=== PATIENT | female | born 1980 | race Caucasian/White ===

== ENCOUNTER → 2019-02-18 13:55 | Outpatient (CLI) | payer OTHER, SELFPAY ==
--- NOTE | 2019-02-18 | DI.CT.S_ITS ---
PROCEDURE: CT ABDOMEN PELVIS W CON INDICATIONS: Persisting abdominal pain TECHNIQUE: After the administration of oral and intravenous contrast, 5 mm thick sections acquired from the diaphragms to the symphysis. 5 mm thick coronal and sagittal reformats were performed. For radiation dose reduction, the following was used: automated exposure control, adjustment of mA and/or kV according to patient size. COMPARISON: None. FINDINGS: Image quality: Excellent. ABDOMEN: Lung bases: Lung bases are clear. Heart size is normal. Solid organs: Liver is enlarged. Incidental note is made of focal fatty infiltration adjacent to the falciform ligament, which is not regarded to be pathologic. Gallbladder demonstrates no significant CT abnormality. Biliary system is non-dilated. Pancreas enhances normally. Spleen is normal in size and enhancement. No adrenal nodules. Kidneys are normal in size and enhancement, without hydronephrosis. Peritoneum and bowel: Stomach, small bowel, and colon loops are normal in caliber and wall thickness. No free fluid or air. Nodes and vessels: No retroperitoneal or mesenteric adenopathy. Aorta and inferior vena cava are normal in caliber. Miscellaneous: No ventral hernias. No significant abnormality can be seen within the region the prior umbilical hernia repair. PELVIS: Genitourinary: Bladder wall thickness is normal. The uterus is retroverted. Miscellaneous: No inguinal hernias or adenopathy. Bones: No suspicious bony lesions. No vertebral body compression fractures. Several Schmorl's nodes can be seen, without grant acute features. IMPRESSION: No imaging explanation is found for this patient's presenting symptoms. Incidental note is made of: Hepatomegaly Unremarkable umbilical hernia repair site. Several Schmorl's nodes Dictated by: Jay Jiménez M.D. on 02/18/2019 at 14:59 Approved by: Jay Jiménez M.D. on 02/18/2019 at 15:03
== END ==
PROVIDERS: PCP Nurse Practitioner Acute Care; Visit Provider Nurse Practitioner Acute Care
DX: R10.9 Unspecified abdominal pain (principal); R16.0 Hepatomegaly, not elsewhere classified
CPT/HCPCS: 74177

== ENCOUNTER → 2019-02-28 09:43 | Outpatient (CLI) | payer OTHER, SELFPAY ==
--- NOTE | 2019-02-28 | DI.MG.S_ITS ---
BILATERAL DIGITAL DIAGNOSTIC MAMMOGRAM 3D/2D: 02/28/2019 CLINICAL: Baseline exam. Left breast pain and nodule. No prior exams were available for comparison. The tissue of both breasts is extremely dense, which lowers the sensitivity of mammography. No significant masses, calcifications, or other findings are seen in either breast. Specifically, no finding to correspond to the patient's palpable abnormality in the subareolar region. No abnormalities in the axillary tail area of pain. IMPRESSION: INCOMPLETE: NEEDS ADDITIONAL IMAGING EVALUATION There are no abnormalities seen in the left breast to correspond with the palpable nodularities in the sub-areolar depth, however, ultrasound is recommended. This was performed immediately following this exam. There is no abnormality seen in the left breast to correspond with the pain in the axillary tail. This exam was interpreted at Station ID: [id number]. NOTE: For mammograms, a report in lay terms will be sent to the patient. Approximately 15% of breast malignancies will not be visualized mammographically. In the management of a palpable breast mass, a negative mammogram must not discourage biopsy of a clinically suspicious lesion. Electronically Signed By: Samina patterson/:02/28/2019 10:55:04 ACR BI-RADS Category 0: Incomplete [id number]
--- NOTE | 2019-02-28 | DI.US.S_ITS ---
LIMITED ULTRASOUND OF LEFT BREAST AND AXILLA: 02/28/2019 CLINICAL: Palpable left breast lump by physician. Focal left breast pain. Comparison is made to exam dated: 02/28/2019 [facility]. Real-time ultrasound of the left breast retroareolar and axilla regions was performed. Garcia scale images of the real-time examination were reviewed. No significant abnormalities were seen sonographically in the left breast retroareolar area or the left axilla. Specifically, no finding to correspond to the patient's palpable abnormality or area of pain. IMPRESSION: NEGATIVE There is no sonographic evidence of malignancy. A 3 year screening mammogram is recommended. Clinical follow up recommended for palpable abnormality and area of left breast pain. Findings and recommendations were conveyed to the patient at time of exam. This exam was interpreted at Station ID: [id number]. Electronically Signed By: Samina patterson/:02/28/2019 11:36:36 letter sent: Normal Exam Ultrasound BI-RADS: 1 Negative
== END ==
PROVIDERS: PCP Nurse Practitioner Acute Care; Visit Provider Nurse Practitioner Acute Care
DX: R92.8 Other abnormal and inconclusive findings on diagnostic imaging of breast (principal); N64.4 Mastodynia; N63.42 Unspecified lump in left breast, subareolar; N63.32 Unspecified lump in axillary tail of the left breast
CPT/HCPCS: 76642; 77066; G0279

== ENCOUNTER → 2019-05-23 08:54 | Outpatient (CLI) | payer OTHER, SELFPAY ==
--- NOTE | 2019-05-23 | DI.MRI.S_ITS ---
PROCEDURE: MR ABDOMEN WO CON INDICATIONS: Unspecified abdominal pain TECHNIQUE: Axial 2-D FLASH in- and [id number], axial breath-hold T2 FSE, axial STIR FSE. Optional contrast may be given, followed by axial 2-D FLASH with fat saturation acquired over the lesion of concern. COMPARISON: [facility], CT, CT ABDOMEN PELVIS W CON, 02/18/2019, 14:57. FINDINGS: Image quality: Excellent. Region of interest: Abdominal wall. Mild scarring in the ventral abdominal wall periumbilical region. No fluid collection. No recurrent hernia is seen. A few foci of susceptibility artifact in the subcutaneous fat. A few small varices. Hepatomegaly again seen. Liver surface is smooth. Gallbladder is unremarkable. No splenomegaly. Pancreatic contour is unremarkable. No adrenal nodule. No hydronephrosis. No free intra-abdominal fluid. No dilated loops of bowel. No AAA. IVC is prominent. Bones: Nearby osseous structures demonstrate normal overall marrow signal. Moderate degenerative change with Schmorl's nodes. IMPRESSION: 1. No recurrent ventral abdominal wall hernia seen. No fluid collection. 2. Hepatomegaly is again seen. Dictated by: Obed No M.D. on 05/23/2019 at 11:40 Approved by: Obed No M.D. on 05/23/2019 at 11:58
== END ==
PROVIDERS: PCP Nurse Practitioner Acute Care; Referring Provider Nurse Practitioner Acute Care; Visit Provider Nurse Practitioner Acute Care
DX: R10.9 Unspecified abdominal pain (principal); R16.0 Hepatomegaly, not elsewhere classified
CPT/HCPCS: 74181

== ENCOUNTER 2023-05-18 10:48 | Emergency (ER) | payer OTHER, SELFPAY ==
[2023-05-18 11:32] VITALS: BP 125/60; PULSE 83; RESP 18; TEMP 36.7; O2SAT 100; BMI 23.6
--- NOTE | 2023-05-18 11:41 | DI.US.S_ITS ---
PROCEDURE: US OB <= 14 WEEKS FETUS INDICATIONS: NO FHT IN OFFICE TECHNIQUE: Real-time scanning was performed of the fetus and maternal pelvic organs, with image documentation. Endovaginal scanning was also performed to better visualize the fetus and maternal ovaries. COMPARISON: None. FINDINGS: There is an intrauterine pole measuring 21 mm, corresponding to an 8 week 5 day gestation, with no significant cardiac activity. Maternal organs: Ovaries corpus luteal cyst is present within the right adnexa. Left ovary is grossly unremarkable. IMPRESSION: demise. We strive to produce accurate, complete, and clear reports of imaging services. To assist us in improving patient care, this report was composed using standard report templates and voice recognition software. Therefore, it may contain abnormal punctuation, insertions and/or omissions. Occasional wrong-word or sound-alike substitutions may occur. Though we review the report and make efforts to correct it, we do recommend that the report be read carefully in proper context to recognize any text inaccuracies. Dictated by: Kenan Hatch M.D. on 05/18/2023 at 12:42 Approved by: Kenan Hatch M.D. on 05/18/2023 at 12:43
[2023-05-18 16:51] VITALS: BP 114/59; PULSE 66; RESP 16; O2SAT 100
[2023-05-18 17:38] LABS: Add Manual Diff / Slide Review NO; Basophils Absolute Auto 100 /uL (0-100); Eosinophils Absolute Auto 100 /uL (0-450); Hematocrit 38.1 % (36-46); Hemoglobin 13.2 g/dL (12.0-16.0); Lymphocytes Absolute Auto 2200 /uL (1100-4500); Lymphocytes Percent Auto 26.7 % (25-40); Mean Corpuscular HGB Conc 34.6 % (30-36); Mean Corpuscular Hemoglobin 32.3 PG (26-34); Mean Corpuscular Volume 93.3 fL (80-100); Monocytes Absolute Auto 600 /uL (0-900); Monocytes Percent Auto 6.9 % (3-14); Neutrophils Absolute Auto 5300 /uL (1500-7000); Neutrophils Percent Auto 64.4 % (50-75); Platelet Count 258 X10^3/uL (150-400); Red Blood Cell Count 4.08 X10^6/uL (4.0-5.2); Red Cell Distribution Width 12.9 % (11.6-14.8); White Blood Cell Count 8.2 X10^3/uL (4.5-11.0)
[2023-05-18 17:51] LABS: Alanine Aminotransferase 47 IU/L (<35); Albumin 4.3 g/dL (3.5-5.0); Albumin Globulin Ratio 1.4 (1.0-2.8); Alkaline Phosphatase 56 U/L (38-126); Aspartate Aminotransferase 28 IU/L (14-36); Bilirubin Total 0.8 mg/dL (0.2-1.3); Blood Urea Nitrogen 5 mg/dL (7-17); Calcium 8.8 mg/dL (8.4-10.2); Carbon Dioxide 24 mmol/L (22-32); Chloride 101 mmol/L (98-107); Estimated Glomerular Filt Rate > 60 mL/min (>60); Glucose 90 mg/dL (70-100); HEMOLYSIS < 15 (0-50); Potassium 3.4 mmol/L (3.4-5.1); Sodium 134 mmol/L (137-145); Total Protein 7.3 g/dL (6.3-8.2)
[2023-05-18 18:07] LABS: HCG Quantitative /Beta subunit 7231.4 mIU/mL
--- NOTE | 2023-05-18 18:30 | ED_ITS ---
HPI - <Taj Wilson PA-C - Last Filed: 05/18/23 18:37> General Chief complaint: Vaginal Bleeding Stated complaint: 10 weeks spotting no heartbeat Time Seen by Provider: 05/18/23 17:15 Source: patient Mode of arrival: Ambulatory Limitations: no limitations History of Present Illness HPI Narrative: 42-year-old female presents to the ED with 1 day of vaginal spotting during . Patient states that she is 10 weeks per her LMP, had her 1st [employer] appointment this morning when they could not detect a heartbeat. Patient states that she started seeing some mild spotting starting last night patient states that it is. Patient states that it is not a significant amount, but rather just a little bit of dark-red when she wipes. No significant pelvic cramping. No abdominal pain. Related Data Home Medications Medication Instructions Recorded Confirmed ascorbic acid (vitamin C) 500 mg 500 mg ##0 05/05/16 tablet cholecalciferol (vitamin D3) 50 2,000 PO BID ##0 05/05/16 mcg (2,000 unit) capsule (Vitamin D3) multivitamin (Multiple Vitamins 1 PO QDAY ##0 05/05/16 tablet) [TURMERIC] ##0 06/16/16 magnesium 200 mg tablet 200 mg PO QDAY ##0 06/16/16 Allergies Allergy/AdvReac Type Severity Reaction Status Date / Time amoxicillin [AMOXICILLIN] Allergy Unknown Verified 05/18/23 11:32 Penicillins [PENICILLINS] Allergy Unknown Verified 05/18/23 11:32 Review of Systems <Taj Wilson PA-C - Last Filed: 05/18/23 18:37> Constitutional Constitutional: Denies chills, Denies fatigue, Denies fever(s), Denies frequent falls, Denies lethargy and Denies weakness Eyes Eyes: Denies change in vision, Denies eye discharge, Denies irritation and Denies loss of vision ENT Ears, Nose, Mouth, and Throat: Denies change in voice, Denies dizziness, Denies neck pain, Denies sore throat and Denies throat swelling Cardiovascular Cardiovascular: Denies chest pain, Denies irregular heart rhythm, Denies lightheadedness, Denies palpitations, Denies dyspnea, Denies dyspnea on exertion and Denies orthopnea Respiratory Respiratory: Denies cough, Denies dyspnea, Denies dyspnea on exertion and Denies wheezing Gastrointestinal Gastrointestinal: Denies abdominal pain, Denies change in bowel habits, Denies diarrhea, Denies nausea and Denies vomiting Genitourinary Genitourinary: Reports abnormal vaginal bleeding Musculoskeletal Musculoskeletal: Denies neck pain and Denies numbness Integumentary/Breasts Skin/Breast: Denies pruritus, Denies erythema, Denies rash and Denies wounds Neurologic Neurologic: Denies behavioral changes, Denies confusion, Denies dizziness, Denies frequent falls, Denies loss of vision, Denies numbness and Denies weakness Psychiatric Psychiatric: Denies anxiety, Denies behavioral changes, Denies confusion, Denies depression, Denies homicidal ideation and Denies suicidal ideation Endocrine Endocrine: Denies fatigue, Denies flushing and Denies palpitations Hematologic/Lymphatic Hematologic/Lymphatic: Denies easy bruising Allergic/Immunologic Allergic/Immunologic: Denies urticaria, Denies throat swelling and Denies wheezing Exam <Taj Wilson PA-C - Last Filed: 05/18/23 18:37> Narrative Exam Narrative: Const General:?cooperative, healthy appearing and comfortable [facility] Head:?normal to inspection Ears:?hearing grossly normal bilaterally Nose:?external nose normal Face and sinus:?normal facial exam and sinuses nontender Mouth:?oral mucosae normal Throat:?posterior oropharynx normal Eyes General:?appearance normal, both eyes and all related structures Neck Neck:?normal visual inspection and no lymphadenopathy noted Resp Effort & Inspection:?normal respiratory effort Auscultation:?clear to auscultation bilaterally Cardio Rate:?regular rate Rhythm:?regular rhythm Neuro General:?patient alert, patient awake and patient oriented x3 Initial Vital Signs Initial Vital Signs: Vital Signs Temperature 98.1 F 05/18/23 11:32 Pulse Rate 83 05/18/23 11:32 Respiratory Rate 18 05/18/23 11:32 Blood Pressure 125/60 05/18/23 11:32 Pulse Oximetry 100 05/18/23 11:32 Oxygen Delivery Method Room Air 05/18/23 11:32 <Araceli Pichardo DO - Last Filed: 05/18/23 19:14> Initial Vital Signs Initial Vital Signs: Vital Signs Temperature 98.1 F 05/18/23 11:32 Pulse Rate 83 05/18/23 11:32 Respiratory Rate 18 05/18/23 11:32 Blood Pressure 125/60 05/18/23 11:32 Pulse Oximetry 100 05/18/23 11:32 Oxygen Delivery Method Room Air 05/18/23 11:32 Course <Taj Wilson PA-C - Last Filed: 05/18/23 18:37> Orders Ordered: ED Orders 05/18/23 11:41 US OB <= 14 weeks fetus Stat 05/18/23 17:25 Complete Blood Count AUTO DIFF Stat Comprehensive Metabolic Panel Stat HCG Quantitative /Beta subunit Stat Type and Screen Stat Vital Signs Vital signs: Vital Signs - 8 hr 05/18/23 11:32 05/18/23 16:51 05/18/23 18:35 Temperature 98.1 F Pulse Rate 83 66 65 Respiratory Rate 18 16 16 Blood Pressure 125/60 114/59 L 104/56 L Pulse Oximetry 100 100 100 Oxygen Delivery Method Room Air Room Air Room Air <Araceli Pichardo DO - Last Filed: 05/18/23 19:14> Orders Ordered: ED Orders 05/18/23 11:41 US OB <= 14 weeks fetus Stat 05/18/23 17:25 Complete Blood Count AUTO DIFF Stat Comprehensive Metabolic Panel Stat HCG Quantitative /Beta subunit Stat Type and Screen Stat Vital Signs Vital signs: Vital Signs - 8 hr 05/18/23 11:32 05/18/23 16:51 05/18/23 18:35 Temperature 98.1 F Pulse Rate 83 66 65 Respiratory Rate 18 16 16 Blood Pressure 125/60 114/59 L 104/56 L Pulse Oximetry 100 100 100 Oxygen Delivery Method Room Air Room Air Room Air MDM - OB/Uterine Contractions <Taj Wilson PA-C - Last Filed: 05/18/23 18:37> Lab Data 05/18/23 17:25 05/18/23 17:25 Labs: Lab Results 05/18/23 Range/Units 17:25 WBC 8.2 (4.5-11.0) X10^3/uL RBC 4.08 (4.0-5.2) X10^6/uL Hgb 13.2 (12.0-16.0) g/dL Hct 38.1 (36-46) % MCV 93.3 (80-100) fL MCH 32.3 (26-34) PG MCHC 34.6 (30-36) % RDW 12.9 (11.6-14.8) % Plt Count 258 (150-400) X10^3/uL Neut % (Auto) 64.4 (50-75) % Lymph % (Auto) 26.7 (25-40) % Elliott % (Auto) 6.9 (3-14) % Eos % (Auto) 1.0 L (2-4) % Baso % (Auto) 1.0 (0-2) % Neut # (Auto) 5300 (3190-0280) /uL Lymph # (Auto) 2200 (2488-4252) /uL Elliott # (Auto) 600 (0-900) /uL Eos # (Auto) 100 (0-450) /uL Baso # (Auto) 100 (0-100) /uL Sodium 134 L (137-145) mmol/L Potassium 3.4 (3.4-5.1) mmol/L Chloride 101 (98-107) mmol/L Carbon Dioxide 24 (22-32) mmol/L BUN 5 L (7-17) mg/dL Creatinine 0.50 L (0.52-1.04) mg/dL Estimated GFR > 60 (>60) mL/min BUN/Creatinine Ratio 10.0 (6-22) Glucose 90 (70-100) mg/dL Calcium 8.8 (8.4-10.2) mg/dL Total Bilirubin 0.8 (0.2-1.3) mg/dL AST 28 (14-36) IU/L ALT 47 H (<35) IU/L Alkaline Phosphatase 56 (38-126) U/L Total Protein 7.3 (6.3-8.2) g/dL Albumin 4.3 (3.5-5.0) g/dL Globulin 3.0 (1.7-4.1) g/dL Albumin/Globulin Ratio 1.4 (1.0-2.8) HCG, Quant 7231.4 mIU/mL Blood Type O Positive Antibody Screen Negative Urine Dip Bedside Urine Glucose Negative Bedside Urine Bilirubin - Negative Bedside Urine Ketone - Negative Urine Specific [place] 1.010 Bedside Urine Occult Blood - Negative Bedside Urine pH 7.5 Bedside Urine Protein - Negative Bedside Urine Urobilinogen - Negative Bedside Urine Nitrite - Negative Bedside Urine Leukocytes - Negative Esterase MDM Narrative Medical decision making narrative: 42-year-old female presents to the ED with 1 day of vaginal spotting during . Concern for intrauterine versus ectopic versus threatened miscarriage versus other. Obtained labs, hCG quantitative, ultrasound. HCG quant is 7231. Patient blood type is O positive, no indication for RhoGAM. Ultrasound shows a intrauterine pole measuring 21 mm, corresponding to an 8 week 5 day gestation with no significant cardiac activity. Discussed findings with patient. Discussed possibility of miscarriage. Recommend follow-up with [facility] for serial exams and evaluation. ED return precautions discussed with patient. Patient verbalized understanding. Medical records reviewed: Yes <Araceli Pichardo DO - Last Filed: 05/18/23 19:14> Lab Data Labs: Lab Results 05/18/23 Range/Units 17:25 WBC 8.2 (4.5-11.0) X10^3/uL RBC 4.08 (4.0-5.2) X10^6/uL Hgb 13.2 (12.0-16.0) g/dL Hct 38.1 (36-46) % MCV 93.3 (80-100) fL MCH 32.3 (26-34) PG MCHC 34.6 (30-36) % RDW 12.9 (11.6-14.8) % Plt Count 258 (150-400) X10^3/uL Neut % (Auto) 64.4 (50-75) % Lymph % (Auto) 26.7 (25-40) % Elliott % (Auto) 6.9 (3-14) % Eos % (Auto) 1.0 L (2-4) % Baso % (Auto) 1.0 (0-2) % Neut # (Auto) 5300 (8986-1157) /uL Lymph # (Auto) 2200 (6560-4835) /uL Elliott # (Auto) 600 (0-900) /uL Eos # (Auto) 100 (0-450) /uL Baso # (Auto) 100 (0-100) /uL Sodium 134 L (137-145) mmol/L Potassium 3.4 (3.4-5.1) mmol/L Chloride 101 (98-107) mmol/L Carbon Dioxide 24 (22-32) mmol/L BUN 5 L (7-17) mg/dL Creatinine 0.50 L (0.52-1.04) mg/dL Estimated GFR > 60 (>60) mL/min BUN/Creatinine Ratio 10.0 (6-22) Glucose 90 (70-100) mg/dL Calcium 8.8 (8.4-10.2) mg/dL Total Bilirubin 0.8 (0.2-1.3) mg/dL AST 28 (14-36) IU/L ALT 47 H (<35) IU/L Alkaline Phosphatase 56 (38-126) U/L Total Protein 7.3 (6.3-8.2) g/dL Albumin 4.3 (3.5-5.0) g/dL Globulin 3.0 (1.7-4.1) g/dL Albumin/Globulin Ratio 1.4 (1.0-2.8) HCG, Quant 7231.4 mIU/mL Blood Type O Positive Antibody Screen Negative Urine Dip Bedside Urine Glucose Negative Bedside Urine Bilirubin - Negative Bedside Urine Ketone - Negative Urine Specific [place] 1.010 Bedside Urine Occult Blood - Negative Bedside Urine pH 7.5 Bedside Urine Protein - Negative Bedside Urine Urobilinogen - Negative Bedside Urine Nitrite - Negative Bedside Urine Leukocytes - Negative Esterase Discharge Plan Departure Patient Disposition: Home Clinical Impression: Vaginal bleeding during Instructions: DI for Vaginal Bleeding During Activity Restrictions/Additional Instructions: You were evaluated in the ED today for spotting during . Your labs were normal. Your hCG which is your hormone is 7231. Your ultrasound shows a that is dated at 8 weeks and 5 days, has a pole, no significant cardiac activity. It is possible that you have a normally progressing , but there is also a chance that you might have a miscarriage. The next steps to managing your is repeat blood tests and ultrasounds to monitor the . You may follow-up with [facility] at [phone] to establish care. Return to the ED if you have worsening symptoms. Prescriptions: No Action multivitamin [Multiple Vitamins] 1 EACH tablet 1 PO QDAY Qty: 0 ascorbic acid (vitamin C) 500 MG tablet 500 mg Qty: 0 cholecalciferol (vitamin D3) [Vitamin D3] 2,000 UNIT capsule 2,000 PO BID Qty: 0 magnesium 200 MG tablet 200 mg PO QDAY Qty: 0 [TURMERIC] Qty: 0 Referrals: Loyda Jackson ARNP [Primary Care Provider] - Stand Alone Forms: Patient Portal/API ED Sign-out <Araceli Pichardo DO - Last Filed: 05/18/23 19:14> Cosign ED Attending Cosignature Attestation: I was immediately available in the department for consultation.
[2023-05-18 18:35] VITALS: BP 104/56; PULSE 65; RESP 16; O2SAT 100
== END 2023-05-18 18:35 | disposition home or self-care (01) ==
PROVIDERS: Emergency Medicine; Emergency Provider Student in an Organized Health Care Education/Training Program; PCP Nurse Practitioner Acute Care
DX: O20.9 Hemorrhage in early pregnancy, unspecified (principal); Z3A.08 8 weeks gestation of pregnancy
CPT/HCPCS: 36415; 76801; 76817; 80053; 81003; 84702; 85025; 86850; 86900; 86901; 99282; 99283

== ENCOUNTER 2023-12-17 01:09 | Emergency (ER) | payer OTHER, SELFPAY ==
[2023-12-17 01:20] VITALS: BP 122/62; PULSE 78; RESP 16; TEMP 37; O2SAT 98; BMI 24.4
--- NOTE | 2023-12-17 02:24 | ED_ITS ---
HPI - General Chief complaint: Urogenital-Female Stated complaint: 10 weeks urinary retention Time Seen by Provider: 12/17/23 01:47 Source: patient Mode of arrival: Ambulatory Limitations: no limitations History of Present Illness HPI Narrative: 43-year-old female with 1 prior spontaneous miscarriage presents with complaint of urinary retention. Patient states she was about 10 weeks . Has not had any other issues. States she has had urinary tension with 2 of her prior pregnancies. One of them she had 2 episodes the other had 1 episode. 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 She states it seemed to have happened when she is held her urine for a long period of time and drink lot of water. She notes this time she would sat for several hours while watching a football game and held her urine and thinks that might have irritated her bladder. One time she had a straight cath, 1 time she had a Tian catheter for several days in the other time she had a straight cath. Patient states no other abdominal discomfort, she feels much better after having her bladder drained. Denies any vaginal spotting or bleeding. No fevers. She has had morning sickness. No other reported symptoms. Patient is quite clear she prefers to have a straight cath and not a Tian catheter. 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 Notes she is interested in following with Dr. Joseph. Related Data Home Medications Medication Instructions Recorded Confirmed ascorbic acid (vitamin C) 500 mg 500 mg ##0 05/05/16 tablet cholecalciferol (vitamin D3) 50 2,000 PO BID ##0 05/05/16 mcg (2,000 unit) capsule (Vitamin D3) multivitamin (Multiple Vitamins 1 PO QDAY ##0 05/05/16 tablet) [TURMERIC] ##0 06/16/16 magnesium 200 mg tablet 200 mg PO QDAY ##0 06/16/16 Allergies Allergy/AdvReac Type Severity Reaction Status Date / Time amoxicillin [AMOXICILLIN] Allergy Unknown Verified 05/18/23 11:32 Penicillins [PENICILLINS] Allergy Unknown Verified 05/18/23 11:32 Review of Systems Review of Systems ROS Unobtainable: All systems reviewed & are unremarkable except as noted in HPI and below Exam Narrative Exam Narrative: GENERAL: Alert and oriented x three, well-appearing female in mild distress. HEENT: Head normocephalic, atraumatic, EOMI, pupils reactive, face symmetric, moist mucous membranes NECK: Supple, full range of motion CARDIOVASCULAR: Regular rate and rhythm without murmurs, rubs or gallops. RESPIRATORY: Breath sounds equal bilaterally, no wheezes rales or rhonchi. ABDOMEN: Soft, nontender. Nondistended. Normoactive bowel sounds all 4 quadrants. No guarding or rebound, rigidity, no mass : No CVA tenderness EXTREMITIES: Normal range of motion, no clubbing or edema. Neurovascularly intact NEUROLOGICAL: Cranial nerves II through XII grossly intact. Moving all extremities SKIN: Warm, dry, no petechiae, no rashes or lesions. Initial Vital Signs Initial Vital Signs: Vital Signs Temperature 98.6 F 12/17/23 01:20 Pulse Rate 78 12/17/23 01:20 Respiratory Rate 16 12/17/23 01:20 Blood Pressure 122/62 12/17/23 01:20 Pulse Oximetry 98 12/17/23 01:20 Oxygen Delivery Method Room Air 12/17/23 01:20 Course Vital Signs Vital signs: Vital Signs - 8 hr 12/17/23 01:20 12/17/23 03:11 Temperature 98.6 F 98 F Pulse Rate 78 68 Respiratory Rate 16 16 Blood Pressure 122/62 114/66 Pulse Oximetry 98 99 Oxygen Delivery Method Room Air Room Air MDM - OB/Uterine Contractions Lab Data Labs: Point of Care Testing Test Results Positive Urine Dip Bedside Urine Glucose Negative Bedside Urine Bilirubin - Negative Bedside Urine Ketone - Negative Urine Specific [place] 1.005 Bedside Urine Occult Blood - Negative Bedside Urine pH 7.0 Bedside Urine Protein - Negative Bedside Urine Urobilinogen - Negative Bedside Urine Nitrite - Negative Bedside Urine Leukocytes - Negative Esterase [facility] Narrative Medical decision making narrative: Patient had about 600 mL out with straight catheterization. Postvoid was negative. Patient was clear she did not wish to have a Tian catheter. She states with prior episode she has had resolved with a straight cath. She has had similar episodes with 2 of her prior pregnancies. Urine is positive. Point of care urine is negative for acute infection. Discussed with patient return precautions. No spotting, bleeding or abdominal discomfort otherwise. Discharge Plan Departure Patient Disposition: Home Clinical Impression: Acute urinary retention, Instructions: DI for Urinary Retention in Women Activity Restrictions/Additional Instructions: Contact information for Dr. Joseph as included below. Please call to set up an appointment. If you have any recurrent retention of urine please return, you would require a Tian catheter and some additional workup. Please return for fevers, new or worsening abdominal back or flank pain, persistent vomiting, any new vaginal spotting or bleeding, difficulty with urination, black or bloody stools or other new or concerning changes. Prescriptions: No Action multivitamin [Multiple Vitamins] 1 EACH tablet 1 PO QDAY Qty: 0 ascorbic acid (vitamin C) 500 MG tablet 500 mg Qty: 0 cholecalciferol (vitamin D3) [Vitamin D3] 2,000 UNIT capsule 2,000 PO BID Qty: 0 magnesium 200 MG tablet 200 mg PO QDAY Qty: 0 [TURMERIC] Qty: 0 Referrals: Valerie Joseph DO [Physician] - Loyda Jackson ARNP [Primary Care Provider] - Stand Alone Forms: Patient Portal/API
[2023-12-17 03:11] VITALS: BP 114/66; PULSE 68; RESP 16; TEMP 36.6; O2SAT 99
== END 2023-12-17 03:12 | disposition home or self-care (01) ==
PROVIDERS: Emergency Provider Emergency Medicine; PCP Nurse Practitioner Acute Care
DX: R33.8 Other retention of urine (principal); Z3A.10 10 weeks gestation of pregnancy
CPT/HCPCS: 51798; 81003; 81025; 99283

== ENCOUNTER 2023-12-22 00:04 | Emergency (ER) | payer OTHER, SELFPAY ==
[2023-12-22 00:18] VITALS: BP 111/79; PULSE 81; RESP 17; TEMP 37; O2SAT 99; BMI 24.4
--- NOTE | 2023-12-22 00:28 | ED_ITS ---
HPI - General Adult General Chief complaint: Urogenital-Female Stated complaint: 11 weeks urniary retention Time Seen by Provider: 12/22/23 00:07 Source: patient Mode of arrival: Ambulatory History of Present Illness HPI narrative: Patient is a 43-year-old female. Is approximately 11 weeks' gestation. Has yet to have an appointment in this however is scheduled to meet with the assisted living administrator. Has had issues with urinary retention and prior pregnancies. Has had issues 1 prior time during this approximately 1 week ago where she came to the emergency department for urinary retention. She was catheterized and drained the bladder. She was adamant that she did not want a catheter left in place. She states since that time she has been urinating. Tries to go the bathroom frequently. She stated that the last time she urinated was about 6 hours ago. She felt like she empties her bladder. She now feels like she needs to urinate but is unable to. She states she was told and prior pregnancies she was a retroverted uterus and during the end of the 1st trimester and into the beginning of the 2nd trimester she can have issues with urinating. She has had to self-catheterize in the past. Related Data Home Medications Medication Instructions Recorded Confirmed ascorbic acid (vitamin C) 500 mg 500 mg ##0 05/05/16 tablet cholecalciferol (vitamin D3) 50 2,000 PO BID ##0 05/05/16 mcg (2,000 unit) capsule (Vitamin D3) multivitamin (Multiple Vitamins 1 PO QDAY ##0 05/05/16 tablet) [TURMERIC] ##0 06/16/16 magnesium 200 mg tablet 200 mg PO QDAY ##0 06/16/16 Allergies Allergy/AdvReac Type Severity Reaction Status Date / Time amoxicillin [AMOXICILLIN] Allergy Unknown Verified 05/18/23 11:32 Penicillins [PENICILLINS] Allergy Unknown Verified 05/18/23 11:32 Review of Systems Review of Systems Narrative: See HPI Patient History Social History Smoking Status: Former smoker Smoking Status: Former smoker alcohol intake frequency: 0-2 drinks per day Substance Use Type: does not use Exam Initial Vital Signs Initial Vital Signs: Vital Signs Temperature 98.6 F 12/22/23 00:18 Pulse Rate 81 09/17/24 00:18 Respiratory Rate 17 12/22/23 00:18 Blood Pressure 111/79 12/22/23 00:18 Pulse Oximetry 99 12/22/23 00:18 Oxygen Delivery Method Room Air 12/22/23 00:18 Const General: cooperative, comfortable and No ill appearing ERLINDAMI Head: normal to inspection and normocephalic GI Inspection: normal to inspection Skin General: no rashes or lesions noted Neuro General: patient alert and patient awake Extrem General: normal to inspection Course Vital Signs Vital signs: Vital Signs - 8 hr 12/22/23 00:18 12/22/23 01:05 Temperature 98.6 F Pulse Rate 81 68 Respiratory Rate 17 14 Blood Pressure 111/79 113/57 L Pulse Oximetry 99 98 Oxygen Delivery Method Room Air Room Air Medical Decision Making MDM Narrative Medical decision making narrative: Patient has not having any vaginal bleeding or vaginal discharge. No abdominal pain. Had a discussion with her regarding her presenting symptoms today. We discussed the risks and benefits of a Tian catheter. After the discussion patient would like to just have a straight cath. She would not like to have a Tian catheter. She understands that despite draining her bladder today she potentially could start to retain urine again and need to return to the emergency department. She expressed understanding of this. drained approximately 500 cc of urine from her bladder. She was able to urinate a small amount on her own afterwards prior to discharge. She was advised that she does need to follow-up with an OB provider. She expressed understanding and agreement with plan. Discharge Plan Departure Patient Disposition: Home Clinical Impression: Acute urinary retention Instructions: DI for Urinary Retention in Women Activity Restrictions/Additional Instructions: You do need follow-up with an OB provider to discuss the issues that you are having with your urinary retention and also routine OB care. Return to the emergency department for new or worsening symptoms. Prescriptions: No Action multivitamin [Multiple Vitamins] 1 EACH tablet 1 PO QDAY Qty: 0 ascorbic acid (vitamin C) 500 MG tablet 500 mg Qty: 0 cholecalciferol (vitamin D3) [Vitamin D3] 2,000 UNIT capsule 2,000 PO BID Qty: 0 magnesium 200 MG tablet 200 mg PO QDAY Qty: 0 [TURMERIC] Qty: 0 Referrals: Loyda Jackson ARNP [Primary Care Provider] - Stand Alone Forms: Patient Portal/API
--- NOTE | 2023-12-22 00:38 | PC.NURSE ---
Pt seen last here in the ER for for the same issue 12/16/23. Pt states that when she is she ends up having urinary retention. This is the second time for this current . Discussed with pt to speak to her OBGYN about having self catheters at home for remainder of this so that she is not this uncomfortable.
[2023-12-22 01:05] VITALS: BP 113/57; PULSE 68; RESP 14; O2SAT 98
== END 2023-12-22 01:05 | disposition home or self-care (01) ==
PROVIDERS: Emergency Provider Emergency Medicine; PCP Nurse Practitioner Acute Care
DX: R33.8 Other retention of urine (principal); Z3A.11 11 weeks gestation of pregnancy
CPT/HCPCS: 51701; 51798; 99282; 99283

== ENCOUNTER → 2024-01-21 06:49 | Outpatient (CLI) | payer OTHER, SELFPAY ==
--- NOTE | 2024-01-21 06:52 | DI.US.S_ITS ---
PROCEDURE: US OB LIMITED INDICATIONS: DATING OUTSIDE/PRIOR DATING DATA: Last menstrual period (LMP): 10/07/23. LMP-based estimated date of delivery (TIM): 07/13/24. First dating scan (date and location): 01/21/24. Estimated date of delivery (TIM) from first dating scan: 07/06/24. TECHNIQUE: Real-time scanning was performed of the fetus, with image documentation and biometric measurements. Endovaginal scanning: Not performed COMPARISON: None. FINDINGS: General: A single living intrauterine gestation is present. Presentation: Variable. Placenta: Placental position is anterior , without previa. Amniotic fluid index: Subjectively normal, normal range is 5-24 cm. Single deepest vertical pocket is not measured. heart rate: 152 beats per minute. Maternal cervical canal: Closed and 4.1 cm long. Normal lower limit is 2.5 cm. biometrics: Biparietal diameter: 3.3 cm, 16 weeks one day Head circumference: 12.2 cm, 16 weeks one day Abdominal circumference: 10.4 cm, 16 weeks three days Femur length: 1.9 cm, 15 weeks four days Clinically estimated gestational age: 15 weeks one day Composite gestational age from present scan: 16 weeks one day Estimated weight and percentile: 141 g, 91st percentile IMPRESSION: Single living intrauterine with composite gestational age of 16 weeks one day, one week ahead of the clinically estimated gestational age. Anterior placenta. Subjectively normal amniotic fluid volume. We strive to produce accurate, complete, and clear reports of imaging services. To assist us in improving patient care, this report was composed using standard report templates and voice recognition software. Therefore, it may contain abnormal punctuation, insertions and/or omissions. Occasional wrong-word or sound-alike substitutions may occur. Though we review the report and make efforts to correct it, we do recommend that the report be read carefully in proper context to recognize any text inaccuracies. Dictated by: Samina Sorenson M.D. on 01/21/2024 at 13:21 Approved by: Samina Sorenson M.D. on 01/21/2024 at 13:24
== END ==
PROVIDERS: PCP Nurse Practitioner Acute Care; Referring Provider Nurse Practitioner Obstetrics & Gynecology; Visit Provider Nurse Practitioner Obstetrics & Gynecology
DX: O09.522 Supervision of elderly multigravida, second trimester (principal); Z3A.16 16 weeks gestation of pregnancy
CPT/HCPCS: 76815

== ENCOUNTER → 2024-03-07 14:16 | Outpatient (CLI) | payer OTHER, SELFPAY ==
--- NOTE | 2024-03-07 14:17 | DI.US.S_ITS ---
PROCEDURE: US OB >= 14 WEEKS FETUS INDICATIONS: anatomy OUTSIDE/PRIOR DATING DATA: Last menstrual period (LMP): 10/07/2023 LMP-based estimated date of delivery (TIM): 07/13/2024. First dating scan (date and location): 01/21/2024 Estimated date of delivery (TIM) from first dating scan: 07/06/2024 The calculations are made using the working TIM of 07/06/2024 TECHNIQUE: Real-time scanning was performed of the fetus, with image documentation and biometric measurements. Endovaginal scanning: Not performed COMPARISON: 01/21/2024. FINDINGS: General: A single living intrauterine gestation is present. Presentation: Breech Placenta: Placental position is anterior, without previa. Amniotic fluid index: 12.4 cm, normal range is 5-24 cm. Single deepest vertical pocket is 4.5 cm. heart rate: 162 beats per minute. Maternal cervical canal: Closed and measures 3.1 cm long. Normal lower limit is 2.5 cm. biometrics: Biparietal diameter: 5.6 cm, 23 weeks, 2 days. Head circumference: 20.6 cm, 22 weeks, 5 days. Abdominal circumference: 19.8 cm, 24 weeks, 3 days. Femur length: 3.6 cm, 21 weeks, 3 days. Clinically estimated gestational age: 22 weeks, 5 days. Composite gestational age from present scan: 23 weeks, 0 day. Estimated weight and percentile: 562 g, 62%. Anatomic survey: Neuro: Ventricles are non-dilated at less than 10 mm. Cisterna magna is normal at 3-11 mm. Cerebellum is normal in size and morphology. Nuchal skin fold: Normal at less than 6 mm between 14-21 weeks gestational age. Face: Nose and lips, facial profile are normal. Spine: No evidence for spina bifida. Heart: 4-chambered heart is present, with normal ventricular outflow tracts. Diaphragm: Diaphragm is intact. Stomach: Left-sided stomach is present. Kidneys: No hydronephrosis. Normal is less than 5 mm in 2nd trimester, less than 7 mm in 3rd trimester. Cord: 3-vessel cord has orthotopic insertion. Bladder: Normal in size. Extremities: All 4 extremities identified. IMPRESSION: 1. Single live intrauterine gestation with fetus in breech presentation. heart rate is 162 beats per minute. Normal MICHAEL at 12.4 cm. Cervix is closed and measures 3.1 cm in length. 2. Estimated weight is at 62% consistent with normal growth. 3. anatomic survey is within normal limits. We strive to produce accurate, complete, and clear reports of imaging services. To assist us in improving patient care, this report was composed using standard report templates and voice recognition software. Therefore, it may contain abnormal punctuation, insertions and/or omissions. Occasional wrong-word or sound-alike substitutions may occur. Though we review the report and make efforts to correct it, we do recommend that the report be read carefully in proper context to recognize any text inaccuracies. Dictated by: Ray Shankar M.D. on 03/07/2024 at 16:49 Approved by: Ray Shankar M.D. on 03/07/2024 at 16:51
== END ==
PROVIDERS: PCP Nurse Practitioner Acute Care; Referring Provider Student in an Organized Health Care Education/Training Program; Visit Provider Student in an Organized Health Care Education/Training Program
DX: O32.1XX0 Maternal care for breech presentation, not applicable or unspecified (principal); Z3A.23 23 weeks gestation of pregnancy
CPT/HCPCS: 76811

== ENCOUNTER → 2024-04-19 11:48 | Outpatient (CLI) | payer OTHER, SELFPAY ==
[2024-04-19 12:48] LABS: Hematocrit 38.2 % (36-46); Hemoglobin 13.1 g/dL (12.0-16.0)
== END ==
PROVIDERS: PCP Nurse Practitioner Acute Care; Referring Provider Student in an Organized Health Care Education/Training Program; Visit Provider Student in an Organized Health Care Education/Training Program
DX: Z13.0 Encounter for screening for diseases of the blood and blood-forming organs and certain disorders involving the immune mechanism (principal)
CPT/HCPCS: 36415; 85014; 85018

== ENCOUNTER → 2024-05-24 07:01 | Outpatient (CLI) | payer OTHER, SELFPAY ==
--- NOTE | 2024-05-24 07:02 | DI.US.S_ITS ---
PROCEDURE: US OB LIMITED INDICATIONS: EFW OUTSIDE/PRIOR DATING DATA: Last menstrual period (LMP): 10/07/2023. LMP-based estimated date of delivery (TIM): 07/13/2024. First dating scan (date and location): 01/21/2024. Estimated date of delivery (TIM) from first dating scan: 07/06/2024. TECHNIQUE: Real-time scanning was performed of the fetus, with image documentation. COMPARISON: [facility], OB LIMITED, 01/21/2024, 7:03. [facility], OB >= 14 WEEKS FETUS, 03/07/2024, 14:39. FINDINGS: A single living intrauterine gestation is present. Presentation: Vertex. Placenta: Placental position is anterior, without previa. Amniotic fluid index: 20.7 cm, normal range is 5-24 cm. Single deepest vertical pocket is 7.4 cm. heart rate: 145 beats per minute. Maternal cervical canal: Not measured Clinically estimated gestational age: 33 weeks and 6 days Estimated gestational age from initial scan: 34 weeks and 3 days BPD is 8.7 cm, 35 weeks Head circumference is 31.2 cm, 34 weeks and 6 days Abdominal circumference is 31 cm, 35 weeks Femur length is 6.3 cm, 32 weeks and 4 days Nonspecific echogenic intracardiac focus in the left ventricle. EFW is at the 58 percentile, 2403 g IMPRESSION: Living intrauterine gestation in vertex presentation. EFW is within normal limits, 58 percentile. MICHAEL is within normal limits. Nonspecific small echogenic intracardiac focus in the left ventricle. Dictated by: Bandar Sanders M.D. on 05/24/2024 at 10:19 Approved by: Bandar Sanders M.D. on 05/24/2024 at 10:21
== END ==
LOC: US 07:01
PROVIDERS: PCP Nurse Practitioner Acute Care; Referring Provider Student in an Organized Health Care Education/Training Program; Visit Provider Student in an Organized Health Care Education/Training Program
DX: Z3A.32 32 weeks gestation of pregnancy (principal); Z36.2 Encounter for other antenatal screening follow-up
CPT/HCPCS: 76815

== ENCOUNTER 2024-06-14 11:59 | Outpatient (CLI) | payer OTHER, SELFPAY ==
--- NOTE | 2024-06-14 12:14 | P.TNLD_ITS ---
Visit Information Visit Information Date of evaluation: 06/14/24 Primary OB Provider: Valerie Joseph Reason for Evaluation: Yes non-stress test Vital Signs Vital Signs: reviewed in OBIX, within normal parameters [facility] Medical History (Updated 05/17/24 @ 16:44 by Valerie Joseph DO) Hereditary hemochromatosis Spinal injury De Quervain's tenosynovitis Ankle injury Wrist fracture Nasal fracture Acute urinary retention Surgical History (Updated 02/16/24 @ 14:44 by Tawana Cevallos, RN) History of umbilical hernia repair History of tonsillectomy and adenoidectomy Family History (Updated 02/16/24 @ 15:42 by Tawana Cevallos RN) Mother Hypertension Prematurity Father Hypertension Grandfather Stroke Grandmother Breast cancer Lung cancer Grandmother Brain tumor Hyperthyroidism History of thyroidectomy Grandfather Bladder cancer Pesticide exposure Aunt Hyperthyroidism Social History marital status: number of children: 3 household members: spouse and children lives independently: Yes caregiver/support person: Yes housing: house pets and animals: Yes (cats, dogs, chickens; kids mostly managing their care) education level: college (almost done w/ bachelor's degree) 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[employer]) current occupational exposures/hazards: No special velasquez needs: No travel history: recent (domestic only) seatbelt use: always helmet use: Yes water heater temp set < 120 deg: Yes working smoke detector in home: Yes fire extinguisher in home: Yes carbon monox detector in home: Yes firearms in home: Yes firearms unloaded and locked: Yes do you feel safe at home: Yes Smoking Status: Former smoker alcohol intake: never (sober since March 24, 2009) substance use type: does not use and former substance user (sober since 2008) during the past year weight has: remained stable (prior to ) Type(s) of exercise: walking and weight lifting (light weights) frequency: daily Evaluation Evaluation Baseline heart rate: 130 Variability: Moderate (11-25) monitor accelerations: Present Monitor Decelerations: Absent Category of Tracing: Reactive Diagnosis, Plan/Disposition Final Diagnosis (1) Advanced maternal age (AMA), 40 years or greater: Status: Acute Plan/Disposition OB Disposition: home
== END 2024-06-14 12:35 | disposition home or self-care (01) ==
LOC: LABOR 12:17 → OB 13:53
PROVIDERS: PCP Nurse Practitioner Acute Care; Referring Provider Student in an Organized Health Care Education/Training Program; Visit Provider Student in an Organized Health Care Education/Training Program
DX: O09.523 Supervision of elderly multigravida, third trimester (principal); Z3A.35 35 weeks gestation of pregnancy
CPT/HCPCS: 59025; G0378; G0379

== ENCOUNTER → 2024-06-20 10:31 | Outpatient (CLI) | payer OTHER, SELFPAY ==
[2024-06-21 11:19] LABS: Strep Grp B PCR NEG for Grp B Strep
== END ==
PROVIDERS: PCP Nurse Practitioner Acute Care; Visit Provider Student in an Organized Health Care Education/Training Program
DX: Z36.85 Encounter for antenatal screening for Streptococcus B (principal)
CPT/HCPCS: 87653

== ENCOUNTER 2024-06-20 10:53 | Outpatient (CLI) | payer OTHER, SELFPAY ==
--- NOTE | 2024-06-20 11:27 | P.TNLD_ITS ---
Visit Information Visit Information Date of evaluation: 06/20/24 Primary OB Provider: Valerie Joseph Reason for Evaluation: Yes non-stress test [facility] Medical History (Updated 05/17/24 @ 16:44 by Valerie Joseph DO) Hereditary hemochromatosis Spinal injury De Quervain's tenosynovitis Ankle injury Wrist fracture Nasal fracture Acute urinary retention Surgical History (Updated 02/16/24 @ 14:44 by Tawana Cevallos, RN) History of umbilical hernia repair History of tonsillectomy and adenoidectomy Family History (Updated 02/16/24 @ 15:42 by Tawana Cevallos, RN) Mother Hypertension Prematurity Father Hypertension Grandfather Stroke Grandmother Breast cancer Lung cancer Grandmother Brain tumor Hyperthyroidism History of thyroidectomy Grandfather Bladder cancer Pesticide exposure Aunt Hyperthyroidism Social History marital status: number of children: 3 household members: spouse and children lives independently: Yes caregiver/support person: Yes housing: house pets and animals: Yes (cats, dogs, chickens; kids mostly managing their care) education level: college (almost done w/ bachelor's degree) 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[employer]) current occupational exposures/hazards: No special velasquez needs: No travel history: recent (domestic only) seatbelt use: always helmet use: Yes water heater temp set < 120 deg: Yes working smoke detector in home: Yes fire extinguisher in home: Yes carbon monox detector in home: Yes firearms in home: Yes firearms unloaded and locked: Yes do you feel safe at home: Yes Smoking Status: Former smoker alcohol intake: never (sober since March 24, 2009) substance use type: does not use and former substance user (sober since 2008) during the past year weight has: remained stable (prior to ) Type(s) of exercise: walking and weight lifting (light weights) frequency: daily Evaluation Evaluation Baseline heart rate: 135 Variability: Moderate (11-25) monitor accelerations: Present Monitor Decelerations: Absent Contraction Frequency (minutes): 0 Category of Tracing: Reactive Diagnosis, Plan/Disposition Final Diagnosis (1) Advanced maternal age (AMA), 40 years or greater: Status: Acute Plan/Disposition OB Disposition: home
== END 2024-06-20 11:32 | disposition home or self-care (01) ==
LOC: LABOR 11:05 → OB 13:45
PROVIDERS: PCP Nurse Practitioner Acute Care; Referring Provider Student in an Organized Health Care Education/Training Program; Visit Provider Student in an Organized Health Care Education/Training Program
DX: O09.523 Supervision of elderly multigravida, third trimester (principal); Z3A.36 36 weeks gestation of pregnancy; Z36.85 Encounter for antenatal screening for Streptococcus B
CPT/HCPCS: 59025; 87653; G0378; G0379

== ENCOUNTER 2024-06-28 10:56 | Outpatient (CLI) | payer OTHER, SELFPAY ==
--- NOTE | 2024-06-28 11:24 | P.TNLD_ITS ---
Visit Information Visit Information Date of evaluation: 06/28/24 Primary OB Provider: Valerie Joseph Reason for Evaluation: Yes non-stress test [facility] Medical History (Updated 05/17/24 @ 16:44 by Valerie Joseph DO) Hereditary hemochromatosis Spinal injury De Quervain's tenosynovitis Ankle injury Wrist fracture Nasal fracture Acute urinary retention Surgical History (Updated 02/16/24 @ 14:44 by Tawana Cevallos, RN) History of umbilical hernia repair History of tonsillectomy and adenoidectomy Family History (Updated 02/16/24 @ 15:42 by Tawana Cevallos, RN) Mother Hypertension Prematurity Father Hypertension Grandfather Stroke Grandmother Breast cancer Lung cancer Grandmother Brain tumor Hyperthyroidism History of thyroidectomy Grandfather Bladder cancer Pesticide exposure Aunt Hyperthyroidism Social History marital status: number of children: 3 household members: spouse and children lives independently: Yes caregiver/support person: Yes housing: house pets and animals: Yes (cats, dogs, chickens; kids mostly managing their care) education level: college (almost done w/ bachelor's degree) 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[employer]) current occupational exposures/hazards: No special velasquez needs: No travel history: recent (domestic only) seatbelt use: always helmet use: Yes water heater temp set < 120 deg: Yes working smoke detector in home: Yes fire extinguisher in home: Yes carbon monox detector in home: Yes firearms in home: Yes firearms unloaded and locked: Yes do you feel safe at home: Yes Smoking Status: Former smoker alcohol intake: never (sober since March 24, 2009) substance use type: does not use and former substance user (sober since 2008) during the past year weight has: remained stable (prior to ) Type(s) of exercise: walking and weight lifting (light weights) frequency: daily Evaluation Evaluation Baseline heart rate: 145 Variability: Moderate (11-25) monitor accelerations: Present Monitor Decelerations: Absent Category of Tracing: Reactive Diagnosis, Plan/Disposition Final Diagnosis (1) Advanced maternal age (AMA), 40 years or greater: Status: Acute Plan/Disposition OB Disposition: home
== END 2024-06-28 11:34 | disposition home or self-care (01) ==
LOC: LABOR 11:21 → OB 14:14
PROVIDERS: PCP Nurse Practitioner Acute Care; Referring Provider Student in an Organized Health Care Education/Training Program; Visit Provider Student in an Organized Health Care Education/Training Program
DX: O09.523 Supervision of elderly multigravida, third trimester (principal); Z3A.37 37 weeks gestation of pregnancy
CPT/HCPCS: 59025; G0378; G0379

== ENCOUNTER 2024-07-05 11:05 | Outpatient (CLI) | payer OTHER, SELFPAY ==
--- NOTE | 2024-07-05 11:41 | PM.OBTRLD ---
Visit Information Visit Information Date of evaluation: 07/05/24 Primary OB Provider: Valerie Joseph Reason for Evaluation: Yes non-stress test [facility] Medical History (Updated 05/17/24 @ 16:44 by Valerie Joseph DO) Hereditary hemochromatosis Spinal injury De Quervain's tenosynovitis Ankle injury Wrist fracture Nasal fracture Acute urinary retention Surgical History (Updated 02/16/24 @ 14:44 by Tawana Cevallos, RN) History of umbilical hernia repair History of tonsillectomy and adenoidectomy Family History (Updated 02/16/24 @ 15:42 by Tawana Cevallos, RN) Mother Hypertension Prematurity Father Hypertension Grandfather Stroke Grandmother Breast cancer Lung cancer Grandmother Brain tumor Hyperthyroidism History of thyroidectomy Grandfather Bladder cancer Pesticide exposure Aunt Hyperthyroidism Social History marital status: number of children: 3 household members: spouse and children lives independently: Yes caregiver/support person: Yes housing: house pets and animals: Yes (cats, dogs, chickens; kids mostly managing their care) education level: college (almost done w/ bachelor's degree) 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[employer]) current occupational exposures/hazards: No special velasquez needs: No travel history: recent (domestic only) seatbelt use: always helmet use: Yes water heater temp set < 120 deg: Yes working smoke detector in home: Yes fire extinguisher in home: Yes carbon monox detector in home: Yes firearms in home: Yes firearms unloaded and locked: Yes do you feel safe at home: Yes alcohol intake: never (sober since March 24, 2009) substance use type: does not use and former substance user (sober since 2008) during the past year weight has: remained stable (prior to ) Type(s) of exercise: walking and weight lifting (light weights) frequency: daily Evaluation Evaluation Baseline heart rate: 140 Variability: Moderate (11-25) monitor accelerations: Present Monitor Decelerations: Absent Category of Tracing: Reactive Diagnosis, Plan/Disposition Final Diagnosis (1) Advanced maternal age (AMA), 40 years or greater: Status: Acute Plan/Disposition OB Disposition: home
== END 2024-07-05 11:45 | disposition home or self-care (01) ==
LOC: LABOR 11:32 → OB 07-06 16:51
PROVIDERS: PCP Nurse Practitioner Acute Care; Referring Provider Student in an Organized Health Care Education/Training Program; Visit Provider Student in an Organized Health Care Education/Training Program
DX: O09.523 Supervision of elderly multigravida, third trimester (principal); Z3A.38 38 weeks gestation of pregnancy
CPT/HCPCS: 59025; G0378; G0379

== ENCOUNTER 2024-07-08 23:46 | Inpatient (IN) | payer OTHER, SELFPAY ==
[2024-07-09 00:37] VITALS: BP 144/86
[2024-07-09 00:51] LABS: Add Manual Diff / Slide Review NO; Basophils Absolute Auto 100 /uL (0-100); Basophils Percent Auto 0.6 % (0-2); Eosinophils Absolute Auto 200 /uL (0-450); Eosinophils Percent Auto 1.6 % (2-4); Hematocrit 39.6 % (36-46); Hemoglobin 13.8 g/dL (12.0-16.0); Lymphocytes Absolute Auto 1900 /uL (1100-4500); Lymphocytes Percent Auto 17.3 % (25-40); Mean Corpuscular Hemoglobin 33.7 PG (26-34); Mean Corpuscular Volume 96.2 fL (80-100); Monocytes Absolute Auto 900 /uL (0-900); Monocytes Percent Auto 7.7 % (3-14); Neutrophils Absolute Auto 8200 /uL (1500-7000); Neutrophils Percent Auto 72.8 % (50-75); Platelet Count 254 X10^3/uL (150-400); Red Blood Cell Count 4.11 X10^6/uL (4.0-5.2); Red Cell Distribution Width 13.1 % (11.6-14.8); White Blood Cell Count 11.2 X10^3/uL (4.5-11.0)
[2024-07-09 01:02] LABS: Alanine Aminotransferase 20 IU/L (<35); Albumin 3.8 g/dL (3.5-5.0); Albumin Globulin Ratio 1.2 (1.0-2.8); Alkaline Phosphatase 120 U/L (38-126); Aspartate Aminotransferase 29 IU/L (14-36); Bilirubin Total 0.5 mg/dL (0.2-1.3); Blood Urea Nitrogen 13 mg/dL (7-17); Calcium 9.7 mg/dL (8.4-10.2); Carbon Dioxide 20 mmol/L (22-32); Chloride 104 mmol/L (98-107); Creatinine Urine Random 31.66 mg/dL; Estimated Glomerular Filt Rate > 60 mL/min (>60); Globulin 3.1 g/dL (1.7-4.1); Glucose 98 mg/dL (70-100); HEMOLYSIS < 15 (0-50); Potassium 3.7 mmol/L (3.4-5.1); Protein (Total) Urine Random 20 mg/dL (0-12); Protein Creatinine Ratio Urine 0.63 GRAM/24H; Sodium 133 mmol/L (137-145); Total Protein 6.9 g/dL (6.3-8.2)
[2024-07-09] MEDS: CALCIUM CARBONATE 500 MG TAB 1000 MG PO (01:55)
[2024-07-09] MEDS: OXYTOCIN PREMIX 30 UNIT/500 ML PLAST..BAG 200 UNIT IV (04:00)
[2024-07-09] MEDS: LIDOCAINE 1% 20 ML INJ (04:31)
--- NOTE | 2024-07-09 04:54 | PM.OBHP.IH.1 ---
OB HPI Date/Time Date of admission: 07/09/24 Date Patient Seen: 07/09/24 Time Patient Seen: 03:00 History of Present Condition Chief complaint: CONTRACTIONS TIM Calculator Estimated Delivery Date Method Current WG Current Estimate 07/13/24 LMP (Certain) 39w 3d Other Estimates 07/06/24 Ultrasound #1 40w 3d : 5 Para: 3 Narrative: 43yo at 39+3wks presented in active labor. care: good care Dating criteria OB: LMP confirmed by 1st trimester US Ultrasounds: normal mid trimester US Obstetrical complications: none Medical complications OB: none Narrative: Ultrasound Ultrasound Details:: Dating US 01/21/24: alvarez IUP measuring 16+1wks, exactly 7 days different from LMP dating, thus TIM unchanged Expected Delivery Route/Plan Specific Issues/Plans [x] cfDNA- low risk XY; [x] MSAFP- neg Advanced maternal age (>40yo)--> [x ] growth sono 32wks; [?x ] weekly NSTs at 36 weeks;? [? 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 (ordered 06/14/24) Excessive weight gain (50lbs at 32wks)--> [ x] growth sono- EFW 58%ile PCN allergy Pap due Planning unmedicated (home last time, was hoping for same this time but insurance denied auth for midwives) Quick labors #2 and #3 (last delivery 2012) Declined GDM screening and TDaP vaccine CHERYL Assigned to [facility] Preadmission Labs Last OB Lab Results: Blood Type O Positive 07/09/24 00:30 Antibody Screen Negative 07/09/24 00:30 Hct 39.6 % (36-46) 07/09/24 00:30 Hgb 13.8 g/dL (12.0-16.0) 07/09/24 00:30 Group B Strep (PCR) Neg for grp b strep 06/20/24 10:31 -: Chlamydia screen: negative, Gonorrhea screen: negative and Urine: negative -: PAP smear: Normal Genetic Screens: Cell-free DNA: Normal External Labs -: Urine: negative Prior (ies) Past Pregnancies Del. Date GA/Weeks Labor Lgth Wt Sex Route Outcome Anesthesia Place Delv Breastfeed Preg Comp Name 06/12/03 38+ 14 7 lb 8 oz Female vaginal live - full term epidural [facility] 1 year none Jasvir 07/02/09 41.1 8 8 lb 4 oz Male vaginal live - full term epidural Micky Montoya 14 months other [place] 09/01/12 41.4 5 8 lb 8 oz Male vaginal live - full term none Home nearly 4 years none [place] 05/18/23 10 spontaneous Delivery Date: 07/02/09 Last Updated by: Tawana Cevallos RN acute urinary retention Delivery Date: 05/18/23 Last Updated by: Tawana Cevallos RN passed spontaneously, no complications Evaluation Evaluation Baseline heart rate: 140 Variability: Moderate (11-25) monitor accelerations: Present Monitor Decelerations: Absent Status: Category l Dilation (cm): 3 Effacement (%): 80 station: -2 [facility] Medical History (Updated 05/17/24 @ 16:44 by Valerie Joseph DO) Hereditary hemochromatosis Spinal injury De Quervain's tenosynovitis Ankle injury Wrist fracture Nasal fracture Acute urinary retention Surgical History (Updated 02/16/24 @ 14:44 by Tawana Cevallos RN) History of umbilical hernia repair History of tonsillectomy and adenoidectomy Family History (Updated 02/16/24 @ 15:42 by Tawana Cevallos RN) Mother Hypertension Prematurity Father Hypertension Grandfather Stroke Grandmother Breast cancer Lung cancer Grandmother Brain tumor Hyperthyroidism History of thyroidectomy Grandfather Bladder cancer Pesticide exposure Aunt Hyperthyroidism Social History marital status: number of children: 3 household members: spouse and children lives independently: Yes caregiver/support person: Yes housing: house pets and animals: Yes (cats, dogs, chickens; kids mostly managing their care) education level: college (almost done w/ bachelor's degree) 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[employer]) current occupational exposures/hazards: No special velasquez needs: No travel history: recent (domestic only) seatbelt use: always helmet use: Yes water heater temp set < 120 deg: Yes working smoke detector in home: Yes fire extinguisher in home: Yes carbon monox detector in home: Yes firearms in home: Yes firearms unloaded and locked: Yes do you feel safe at home: Yes Smoking Status: Former smoker alcohol intake: never (sober since March 24, 2009) substance use type: does not use and former substance user (sober since 2008) during the past year weight has: remained stable (prior to ) Type(s) of exercise: walking and weight lifting (light weights) frequency: daily Meds Home Medications and Allergies Home Medications Medication Instructions Recorded Confirmed Type ascorbic acid (vitamin C) 500 mg 500 mg ##0 05/05/16 07/05/24 History tablet cholecalciferol (vitamin D3) 50 2,000 PO BID ##0 05/05/16 07/05/24 History mcg (2,000 unit) capsule (Vitamin D3) multivitamin (Multiple Vitamins 1 PO QDAY ##0 05/05/16 07/05/24 History tablet) [TURMERIC] ##0 06/16/16 07/05/24 History magnesium 200 mg tablet 200 mg PO QDAY ##0 06/16/16 07/05/24 History valacyclovir 500 mg tablet 500 mg PO BID #60 tabs 06/14/24 07/09/24 Rx (Valtrex) Allergies Allergy/AdvReac Type Severity Reaction Status Date / Time amoxicillin [AMOXICILLIN] Allergy Mild Rash Verified 07/05/24 10:35 Penicillins [PENICILLINS] Allergy Mild Hives Verified 07/05/24 10:35 Review of Systems Review of Systems ROS: Yes All systems reviewed with the patient and are negative except as otherwise documented OB Exam Vital signs Blood Pressure: 144/86 Pulse Rate: 69 Temperature: 98.4 F HENMT Head: normal to inspection and normocephalic Eyes General: appearance normal, both eyes and all related structures Resp Effort & Inspection: normal respiratory effort and able to speak in complete sentences Extremities Lower extremity: Yes normal to inspection GI Inspection: normal to inspection Other: gravid, nontender, nondistended Objective Labs 07/09/24 00:30 07/09/24 00:30 Labs: Laboratory Results - last 24 hr 07/09/24 00:30 WBC 11.2 H RBC 4.11 Hgb 13.8 Hct 39.6 MCV 96.2 MCH 33.7 MCHC 35.0 RDW 13.1 Plt Count 254 Neut % (Auto) 72.8 Lymph % (Auto) 17.3 L [place] % (Auto) 7.7 Eos % (Auto) 1.6 L Baso % (Auto) 0.6 Neut # (Auto) 8200 H Lymph # (Auto) 1900 [place] # (Auto) 900 Eos # (Auto) 200 Baso # (Auto) 100 Sodium 133 L Potassium 3.7 Chloride 104 Carbon Dioxide 20 L BUN 13 Creatinine 0.62 Estimated GFR > 60 BUN/Creatinine Ratio 21.0 Glucose 98 Calcium 9.7 Total Bilirubin 0.5 AST 29 ALT 20 Alkaline Phosphatase 120 Total Protein 6.9 Albumin 3.8 Globulin 3.1 Albumin/Globulin Ratio 1.2 U Random Total Protein 20 H Urine Creatinine 31.66 Protein/Creatinin Ratio 0.63 Blood Type O Positive Antibody Screen Negative Assessment and Plan Assessment and Plan Assessment and Plan narrative: 43yo at 39+3wks admitted in active labor. -CBC, T&S on admission; PIH labs also drawn due to mild range blood pressures upon admission -continuous EFM -epidural PRN -GBS neg, ppx not indicated -PPH risk low -VTE risk low, SCDs with epidural -anticipate L&D Counseling: Common procedures and interventions related to the management of were explained to the patient, including assistance at vaginal delivery with episiotomy, vacuum, or forceps, use of medications to stop premature labor or induce labor, and assessment including auscultation (listening to the heart), use of electronic monitoring (external and / or internal), and use of scalp electrode and/or intrauterine pressure catheter.? It was also explained that approximately 20-30% of mothers have a need for delivery during their labor course. It was explained to the patient that , labor and delivery are ordinarily normal physiological events and can be expected to provide a healthy outcome for mother and baby in the majority of cases. However, there are complications that may arise during , labor, and delivery, such as: hemorrhage requiring administration of blood and/or blood products, surgical intervention, possibly even hysterectomy for life-saving purposes; possibility of infection requiring antibiotics, prolonged hospital stay, and rarely surgical intervention; possibility of blood clots;? possibility of retained products of conception requiring surgical intervention;? possibility of serious tears or injury to the vagina, cervix, perineum, or rectum;? possibility of injury to abdominal structures if delivery is required;? and rarely maternal or may occur. Time-Based Coding :: [20min] spent with patient and on the chart (including review of chart, obtaining history, exam, reviewing outside data, placing orders, documenting exam and treatment plan, and counseling patient) on [07/09/24].
--- NOTE | 2024-07-09 04:54 | PM.OBPRVD ---
Labor & Delivery Delivery date: 07/09/24 Delivery Time: 03:44 Intrapartal Events: None Cervical ripening method: none Induction method: none Delivery monitor: external FHT and external uterine Route of delivery: L&D Laceration Description: Perineal - 2nd Degree Delivery repair: vicryl Quantitative Blood Loss: 300 Anesthesia Type: Local Complications: none Narrative: The patient progressed to C/C/+2 in spontaneous labor. After approximately 10min of maternal pushing efforts, the infant delivered in OA position with mom in hands and knees position. The anterior shoulder delivered with gentle upward pressure. The posterior shoulder and rest of body delivered with ease. The was placed on maternal abdomen and dried/stimulated, then the cord was doubly clamped and cut after the cord stopped pulsing. At this point, an IV was started and pitocin infusion was initiated. Patient refused traction on the cord, thus the placenta was expectantly managed. After 35min, the placenta delivered spontaneously and was intact with a 3-vessel cord. The fundus was noted to be firm with bimanual massage and pitocin. Inspection of the cervix, vagina, and perineum was notable for a 2nd degree perineal laceration. Repair was performed using 3-0 Vicryl in a running, unlocked fashion after analgesia with 1% lidocaine. Skin was reapproximated in a running, subcuticular fashion. At the end of the repair, all tissues noted to be hemostatic. All sponges were removed from the vagina. The patient tolerated delivery well and remained in the labor room with the infant at the bedside. Baby 1: Infant gender: Male Presentation: vertex Placenta delivery description: Spontaneous Cord Vessel Description: 3 Vessels score (1 min): 7 score (5 min): 9 weight: 8 lb 6.041 oz Plan for aftercare: Routine care
[2024-07-09] MEDS: IBUPROFEN 600 MG TABLET PO ×3 (06:29→18:47)
[2024-07-09] MEDS: ACETAMINOPHEN 325 MG TABLET 650 MG PO ×3 (06:29→18:47)
[2024-07-09] MEDS: DERMOPLAST SPRAY 20% 60 ML 1 SPRAY TOP (06:30)
[2024-07-09] MEDS: PRENATAL VIT,CALC/IRON/FOLIC 1 TABLET 1 TAB PO (08:56)
--- NOTE | 2024-07-09 17:30 | P.DS_ITS ---
Discharge Providers Provider Date of admission: 07/08/24 23:46 Discharge Date: 07/09/24 Primary care physician: ADILIA Gomez Consults: 07/09/24 00:38 Consult to Anesthesiology Urgent Comment: Consulting Provider: Anesthesiologist Reason for consultation: Epidural 07/10/24 04:52 Consult to Radio Time Salesperson Routine Comment: Discharge provider: Valerie Joseph DO Summary Hospital Course Date Patient Seen: 07/09/24 Time Patient Seen: 17:30 Diagnoses: Term gestation at 39+3wks Advanced maternal age History of HSV-2 Excessive weight gain in Hospital Course: 43yo [id number] admitted at 39+3wks in active labor. She progressed to an uncomplicated spontaneous vaginal delivery, productive of a viable male . Her course was unremarkable. On day #1, she was ambulating, tolerating regular diet, voiding spontaneously with minimal lochia. Her pain was well controlled with oral medications, thus she was discharged to home on day #1. During her hospital course, she had several mild range blood pressures during active labor, however her blood pressures were all within normal limits. Her labs were unremarkable, other than a urine p:c of 0.6, however this was done during active labor, thus difficult to determine accuracy. Thus she was not started on antihypertensive treatment prior to discharge. Peripartum Data Infant Delivery Method: Natural Vaginal Laceration Description: Perineal - 2nd Degree Procedures: External monitoring Local analgesia Obstetrical laceration repair complications: none [place] 1: Gender: Male Disposition of : home Discharge Diagnosis (1) Normal vaginal delivery: Status: Acute (2) Single live : Status: Acute (3) Excessive weight gain affecting : Status: Acute (4) Herpes simplex type 2 (HSV-2) infection affecting , antepartum: Status: Acute (5) Advanced maternal age (AMA), 40 years or greater: Status: Acute (6) 39 weeks gestation of : Status: Acute Status at Discharge Cognitive/behavioral status at discharge: oriented Functional status at discharge: independent ambulation Overall status at discharge: patient is progressing back to baseline Time Spent with Patient Time attestation: Total time spent providing and/or coordinating discharge services: Time spent: Less than 30 minutes Objective Labs 07/09/24 00:30 07/09/24 00:30 Labs: Laboratory Results - last 24 hr 04/05/25 00:30 WBC 11.2 H RBC 4.11 Hgb 13.8 Hct 39.6 MCV 96.2 MCH 33.7 MCHC 35.0 RDW 13.1 Plt Count 254 Neut % (Auto) 72.8 Lymph % (Auto) 17.3 L [place] % (Auto) 7.7 Eos % (Auto) 1.6 L Baso % (Auto) 0.6 Neut # (Auto) 8200 H Lymph # (Auto) 1900 [place] # (Auto) 900 Eos # (Auto) 200 Baso # (Auto) 100 Sodium 133 L Potassium 3.7 Chloride 104 Carbon Dioxide 20 L BUN 13 Creatinine 0.62 Estimated GFR > 60 BUN/Creatinine Ratio 21.0 Glucose 98 Calcium 9.7 Total Bilirubin 0.5 AST 29 ALT 20 Alkaline Phosphatase 120 Total Protein 6.9 Albumin 3.8 Globulin 3.1 Albumin/Globulin Ratio 1.2 U Random Total Protein 20 H Urine Creatinine 31.66 Protein/Creatinin Ratio 0.63 Blood Type O Positive Antibody Screen Negative Exam Vital Signs (past 8 hours): vitals reviewed in OBIX, within normal parameters in the period Const General: cooperative, healthy appearing, comfortable and No acute distress Resp Effort & Inspection: normal respiratory effort GI Inspection: normal to inspection Skin General: no rashes or lesions noted Neuro General: patient alert and patient awake Extrem General: normal to inspection, no pedal edema and no calf tenderness Psych Mood: congruent mood Affect: normal affect Discharge Plan Discharge Plan Patient Disposition: Home Provider Discharge Comment: Take ibuprofen 800mg every 8hrs and acetminophen 650mg every 6hrs as needed for pain. Avoid placing anything in the vagina for at least 6 weeks. Discharge orders & Medications Prescriptions: Continued multivitamin [Multiple Vitamins] 1 EACH tablet 1 PO QDAY Qty: 0 ascorbic acid (vitamin C) 500 MG tablet 500 mg Qty: 0 cholecalciferol (vitamin D3) [Vitamin D3] 2,000 UNIT capsule 2,000 PO BID Qty: 0 magnesium 200 MG tablet 200 mg PO QDAY Qty: 0 [TURMERIC] Qty: 0 Discontinued valacyclovir [Valtrex] 500 mg tablet 500 mg PO BID Qty: 60 1RF Follow up/Referrals: Valerie Joseph DO [Physician] - (Please call on Thursday for a 6 week visit.) Diet/Activity/Treatments Diet: Diet as Tolerated Activity: As tolerated. Skin/Wound/Dressing Care Report to your healthcare provider any signs of infection, such as:: chills, fever, increased pain and unusual drainage Visit Report/Discharge Packet Instructions: DI for Labor and Delivery, Vaginal Stand Alone Forms: Patient Portal/API, Stroke Signs & Symptoms Discharge Data Primary Care Provider: Loyda Jackson
[2024-07-09 17:37] VITALS: BP 144/86; PULSE 69; TEMP 36.9
== END 2024-07-09 22:45 | disposition home or self-care (01) | DRG 807 ==
PROVIDERS: Student in an Organized Health Care Education/Training Program; Admitting Provider Obstetrics & Gynecology; PCP Nurse Practitioner Acute Care; Referring Provider Obstetrics & Gynecology; Visit Provider Obstetrics & Gynecology
DX: O98.52 Other viral diseases complicating childbirth (principal); Z37.0 Single live birth; B00.9 Herpesviral infection, unspecified; O70.1 Second degree perineal laceration during delivery; Z3A.39 39 weeks gestation of pregnancy
CPT/HCPCS: 36415; 59050; 59410; 80053; 82570; 84156; 85025; 86850; 86900; 86901; G0379; J2590